=== PATIENT | male | born 1935 | race Two or more races ===

== ENCOUNTER 2019-06-18 10:19 | Inpatient (IN) | payer OTHER ==
[~2019-06-18] VITALS: Ht 165.1 cm; Wt 73.5 kg
[2019-06-18] MEDS ORDERED: LASIX20 MG (11:33)
[2019-06-18] MEDS ORDERED: FAMOTIDINE40 MG (11:34)
[2019-06-18] MEDS ORDERED: TOPROL XL100 M1 (11:34)
[2019-06-18] MEDS ORDERED: TAMS0.4C (11:34)
[2019-06-18] MEDS ORDERED: CILOSTAZOL100 MG (11:34)
[2019-06-18] MEDS ORDERED: COZAAR100 MG (11:34)
[2019-06-18] MEDS ORDERED: LIPITOR40 M1 (11:35)
[2019-06-18] MEDS ORDERED: NORVASC2.5 M1 (11:35)
[2019-06-18] MEDS ORDERED: ASPIR 8181 MG (11:35)
[2019-06-18] MEDS ORDERED: METFORMIN (11:35)
[2019-06-18] MEDS ORDERED: SYNTHROID (11:36)
[2019-06-18] MEDS ORDERED: FOLIC ACID20 MG (11:36)
[2019-06-22] MEDS ORDERED: LEVAQUIN500 MG PO (09:42)
== END 2019-06-22 13:49 | disposition home or self-care (01) | DRG 181 ==
LOC: ER 10:19 → MEDJ 06-19 11:19
PROVIDERS: ADMIT Internal Medicine
PROC: BB24ZZZ Computerized Tomography (CT Scan) of Bilateral Lungs (ICD-10-PCS; 2019-06-19)
PROC: 3E0F7GC Introduction of Other Therapeutic Substance into Respiratory Tract, Via Natural or Artificial Opening (ICD-10-PCS; 2019-06-19)
PROC: B246ZZZ Ultrasonography of Right and Left Heart (ICD-10-PCS; 2019-06-20)
PROC: 0W9930Z Drainage of Right Pleural Cavity with Drainage Device, Percutaneous Approach (ICD-10-PCS; principal; 2019-06-21)
PROC: 4A033R1 Measurement of Arterial Saturation, Peripheral, Percutaneous Approach (ICD-10-PCS; 2019-06-22)
DX: D14.31 Benign neoplasm of right bronchus and lung (principal); J90 Pleural effusion, not elsewhere classified; I73.89 Other specified peripheral vascular diseases; I77.811 Abdominal aortic ectasia; I08.3 Combined rheumatic disorders of mitral, aortic and tricuspid valves; E03.8 Other specified hypothyroidism; E11.9 Type 2 diabetes mellitus without complications; Z79.4 Long term (current) use of insulin